=== PATIENT | female | born 1930 | race Caucasian/White ===

== ENCOUNTER 2018-09-09 17:10 | Inpatient (IN) | payer MEDICARE, MEDICAID ==
--- NOTE | 2018-09-09 17:17 | ED Physician Chart ---
ED Chief Complaint/HPI - Patient Information Date Seen:: 09/09/18 Time Seen:: 17:00 Chief Complaint:: Poor Oral Intake History of Present Illness:: onset x 3 days of poor oral intake and failure to thrive; no report of trauma, LOC, ALOC, AMS, H/As, S/T, neck pain, cough, C/P, SOB, Abd. Pain, A/N/V/D/C, fever,chills, or urinary s/s Historian:: Patient, EMS Review:: Nurse's Note Reviewed, Old Chart Reviewed, EMS run form Reviewed ED Review of Systems - Review of Systems General/Constitutional: Fever, No chills, No weight loss, Weakness, No diaphoresis, No edema, No loss of appetite Skin: No skin lesions, No rash, No bruising Head: No headache, No light-headedness Eyes: No loss of vision, No pain, No diplopia ENT: No earache, No nasal drainage, No sore throat, No tinnitus Neck: No neck pain, No swelling, No thyromegaly, No stiffness, No mass noted Cardio Vascular: No chest pain, No palpitations, No PND, No orthopnea, No edema Pulmonary: No SOB, No cough, No sputum, No wheezing GI: No nausea, No vomiting, No diarrhea, No pain, No melena, No hematochezia, No constipation, No hematemesis G/U: No dysuria, No frequency, No hematuria, No nacturia Computer Forensic Specialist: No vaginal discharge, No abnormal vaginal bleed, No contraction Musculoskeletal: No bone or joint pain, No back pain, No muscle pain Endocrine: No polyuria, No polydipsia Psychiatric: Prior psych history, Depression, Anxiety, No suicidal ideation, No homicidal ideation, No auditory hallucination, No visual hallucination Hematopoietic: No bruising, No lymphadenopathy Allergic/Immuno: No urticaria, No angioedema Neurological: No syncope, No focal symptoms, Weakness, No paresthesia, No headache, No seizure, No dizziness, Confusion, No vertigo ED Past Medical History - Past Medical History Obtainable: Yes Past Medical History: HTN, CAD, PUD/GERD, Arthritis, Dementia Family History: Diabetes Melitus, HTN Social History: Non Smoker, No Alcohol, No Drug Use, , Care Facility Surgical History: other (Abdominal/Esophageal Surgery) Psychiatricy History: Dementia Medication: Reviewed Family Medical History - Family Member Mother History Unknown: Yes ED Physical Exam - Physical Examination General/Constitutional: Awake, Well-developed, well-nourished, Alert, No distress, GCS 15, Non-toxic appearing, Ambulatory Head: Atraumatic Eyes: Lids, conjuctiva normal, PERRL, EOMI Skin: Nl inspection, No rash, No skin lesions, No ecchymosis, Well hydrated, No lymphadenopathy ENMT: External ears, nose nl, TM canals nl, Nasal exam nl, Lips, teeth, gums nl , Oropharynx nl, Tonsils nl Neck: Nontender, Full ROM w/o pain, No JVD, No nuchal rigidity, No bruit, No mass, No stridor Respiratory: Nl effort/Exclusion, Clear to Auscultation, No Wheeze/Rhonchi/Rales Cardio Vascular: RRR, No murmur, gallop, rubs, NL S1 S2, Carotid/Femoral/Distal pulses equal bilaterally GI: No tenderness/rebounding/guarding, No organomegaly, No hernia, Normal BS's, Nondistended, No mass/bruits, No McBurney tenderness : No CVA tenderness Extremities: No tenderness or effusion, Full ROM, normal strength in all extremities, No edema, Normal digits & nails Neuro/Psych: Alert/oriented, DTR's symmetric, Normal sensory exam, Normal motor strength, Judgement/insight normal, Mood normal, Normal gait, No focal deficits Misc: Normal back, No paraspinal tenderness ED Labs/Radiology/EKG Results - Lab Results Comments:: Reviewed - Radiology Results Comments:: NAD - EKG Interpretations EKG Time:: 17:30 Rate & Rhythm: 78; NSR Comments:: non-specific st-t changes ED Septic Shock - . Is Septic Shock (SBP<90, OR Lactate>4 mmol\L) present?: No ED Reassessment (Disposition) - Reassessment Reassessment Condition:: Improved - Diagnosis Diagnosis:: poor Oral Intake; Failure to Thrive; Dehydration
[2018-09-09 18:10] LABS: % BASOPHILS 0.4 % (0.0-2.0); % LYMPHOCYTES 24.1 % (20.0-50.0); % MONOCYTES 6.6 % (2.0-10.0); % NEUTROPHILS 67.9 % (40.0-80.0); EOSINOPHILE ABSOLUTE 0.1 Th/cmm (0.1-0.4); HEMOGLOBIN 14.3 gm/dL (12-16); MEAN CELL VOLUME 86.5 fl (81-100); MEAN CORPUSCULAR HEMOGLOBIN 28.1 pg (27.0-31.0); MEAN CORPUSCULAR HGB CONC 32.5 pg (28.0-36.0); MEAN PLATELET VOLUME 7.9 fl; MONOCYTE ABSOLUTE 0.6 Th/cmm (0.3-1.0); NEUTROPHILE ABSOLUTE 5.7 Th/cmm (1.8-8.0); PLATELET COUNT 214 Th/cmm (150-400); RED BLOOD COUNT 5.09 Mil/cmm (3.80-5.20); RED CELL DISTRIBUTION WIDTH 13.8 % (11.5-20.0); WHITE BLOOD COUNT 8.4 Th/cmm (4.8-10.8)
[2018-09-09 18:30] LABS: ALBUMIN 3.8 gm/dL (3.7-5.3); ALKALINE PHOSPHATASE 71 U/L (34-104); BILIRUBIN,TOTAL 0.4 mg/dL (0.3-1.0); BUN - UREA NITROGEN 29 mg/dL (7-25); CALCIUM SERUM 10.2 mg/dL (8.6-10.3); CARBON DIOXIDE 25.4 mEq/L (21.0-31.0); CHLORIDE 103 mEq/L (98-107); CREATININE - SERUM 0.8 mg/dL (0.6-1.2); CREATININE KINASE 42 U/L (30-223); GLUCOSE 94 mg/dL (70-105); POTASSIUM SERUM 4.4 mEq/L (3.5-5.1); SGOT 20 U/L (13-39); SGPT/ALT 8 U/L (7-52); SODIUM SERUM 137 mEq/L (136-145); TOTAL PROTEIN,SERUM 7.6 gm/dL (6.0-8.3)
[2018-09-09 18:31] LABS: TROP I 0.03 ng/mL (0.01-0.05)
[2018-09-09 18:39] LABS: INR 0.97 (0.5-1.4); PROTHROMBIN TIME (TEST) 10.1 SECONDS (9.5-11.5)
[2018-09-09] MEDS ORDERED: Sodium Chloride 0.9% 1,000 ML IV ONE (20:45)
[2018-09-09 21:42] VITALS: BP 133/60
[2018-09-09] MEDS ORDERED: Magnesium Hydroxide (MOM) 30 mL UDC PO PRN (21:45)
[2018-09-09] MEDS ORDERED: Acetaminophen 500 MG TAB PO PRN (21:45)
[2018-09-09] MEDS ORDERED: Ipratropium Neb 0.5 mg/2.5 mL UD HHN PRN (21:46)
[2018-09-09] MEDS ORDERED: Albuterol Nebulizer 2.5mg/3mL HHN PRN (21:46)
[2018-09-09] MEDS ORDERED: Maalox 30 mL Cup PO PRN (21:46)
[2018-09-09] MEDS ORDERED: guaiFENesin 200 MG/10 ML UDC PO PRN (21:46)
[2018-09-09] MEDS: D5-0.45NS 1,000 ML IV SCH (22:40)
[2018-09-10 05:43] LABS: URINE SOURCE CATH
[2018-09-10 05:46] LABS: URINE BILIRUBIN NEGATIVE (NEGATIVE); URINE BLOOD TRACE (NEGATIVE); URINE GLUCOSE (UA) NEGATIVE (NEGATIVE); URINE KETONE NEGATIVE (NEGATIVE); URINE LEUKOCYTE ESTERASE LARGE (NEGATIVE); URINE MICROSCOPIC INDICATED? YES; URINE NITRATE POSITIVE (NEGATIVE); URINE PROTEIN NEGATIVE (NEGATIVE); URINE UROBILINOGEN 0.2 E.U./dL (0.2 - 1.0)
[2018-09-10 05:54] LABS: URINE CLARITY HAZY (CLEAR); URINE COLOR YELLOW
[2018-09-10 05:55] LABS: URINE RBC 0-2 /hpf (0-5)
[2018-09-10 05:56] LABS: URINE BACTERIA MODERATE /hpf (NONE SEEN); URINE EPITHELIAL CELLS MODERATE /lpf (FEW); URINE WBC 50-100 /hpf (0-5)
--- NOTE | 2018-09-10 08:38 | Diagnostic Imaging Report ---
CHEST X-RAY: AP view INDICATION: pain COMPARISON: None FINDINGS: Chronic lung changes are seen with increased left basal lung markings. There may be trace left pleural fluid. Heart size is difficult to assess due to body habitus and appears borderline prominent. Atherosclerosis is noted. Degenerative changes of the spine are noted. IMPRESSION: Limited exam due to body habitus. Chronic lung changes are seen with increased left basal lung markings which may be chronic. Faint infiltrate is less likely Trace left pleural fluid suspected Atherosclerotic vascular disease.
[2018-09-10] MEDS ORDERED: CHOLECALCIFEROL 2000 UNIT PO SCH (09:00)
[2018-09-10] MEDS: Multivitamin w/ Minerals Tab PO SCH (09:18)
--- NOTE | 2018-09-10 11:32 | Internal Medicine Prog Note ---
Internal Medicine Subjective - Subjective Service Date: 09/10/18 ([id number] [facility] ) Internal Medicine Objective - Results Result Diagrams: 09/09/18 17:45 09/09/18 17:45 Recent Labs: Laboratory Last Values WBC 8.4 Th/cmm (4.8-10.8) 09/09/18 17:45 RBC 5.09 Mil/cmm (3.80-5.20) 09/09/18 17:45 Hgb 14.3 gm/dL (12-16) 09/09/18 17:45 Hct 44.0 % (41.0-60) 09/09/18 17:45 MCV 86.5 fl (81-100) 09/09/18 17:45 MCH 28.1 pg (27.0-31.0) 09/09/18 17:45 MCHC Differential 32.5 pg (28.0-36.0) 09/09/18 17:45 RDW 13.8 % (11.5-20.0) 09/09/18 17:45 Plt Count 214 Th/cmm (150-400) 09/09/18 17:45 MPV 7.9 fl 09/09/18 17:45 Neutrophils % 67.9 % (40.0-80.0) 09/09/18 17:45 Lymphocytes % 24.1 % (20.0-50.0) 09/09/18 17:45 Monocytes % 6.6 % (2.0-10.0) 09/09/18 17:45 Eosinophils % 1.0 % (0.0-5.0) 09/09/18 17:45 Basophils % 0.4 % (0.0-2.0) 09/09/18 17:45 PT 10.1 SECONDS (9.5-11.5) 09/09/18 17:45 INR 0.97 (0.5-1.4) 09/09/18 17:45 PTT (Actin FS) 25.6 SECONDS (26.0-38.0) L 09/09/18 17:45 Sodium 137 mEq/L (136-145) 09/09/18 17:45 Potassium 4.4 mEq/L (3.5-5.1) 09/09/18 17:45 Chloride 103 mEq/L (98-107) 09/09/18 17:45 Carbon Dioxide 25.4 mEq/L (21.0-31.0) 09/09/18 17:45 Anion Gap 13.0 (7.0-16.0) 09/09/18 17:45 BUN 29 mg/dL (7-25) H 09/09/18 17:45 Creatinine 0.8 mg/dL (0.6-1.2) 09/09/18 17:45 Est GFR ( Amer) TNP 09/09/18 17:45 Est GFR (Non-Af Amer) TNP 09/09/18 17:45 BUN/Creatinine Ratio 36.3 09/09/18 17:45 Glucose 94 mg/dL (70-105) 09/09/18 17:45 Whole Bld Lactic Acid 0.98 mmol/L (0.60-1.99) 09/09/18 17:45 Calcium 10.2 mg/dL (8.6-10.3) 09/09/18 17:45 Total Bilirubin 0.4 mg/dL (0.3-1.0) 09/09/18 17:45 AST 20 U/L (13-39) 09/09/18 17:45 ALT 8 U/L (7-52) 09/09/18 17:45 Alkaline Phosphatase 71 U/L (34-104) 09/09/18 17:45 Creatine Kinase 42 U/L (30-223) 09/09/18 17:45 Troponin I 0.03 ng/mL (0.01-0.05) 09/09/18 17:45 Total Protein 7.6 gm/dL (6.0-8.3) 09/09/18 17:45 Albumin 3.8 gm/dL (3.7-5.3) 09/09/18 17:45 Globulin 3.8 gm/dL 09/09/18 17:45 Albumin/Globulin Ratio 1.0 (1.0-1.8) 09/09/18 17:45 Urine Source CATH 09/10/18 05:30 Urine Color YELLOW 09/10/18 05:30 Urine Clarity HAZY (CLEAR) 09/10/18 05:30 Urine pH 6.0 (4.6 - 8.0) 09/10/18 05:30 Ur Specific [place] <= 1.005 (1.005-1.030) 09/10/18 05:30 Urine Protein NEGATIVE mg/dL (NEGATIVE) 09/10/18 05:30 Urine Glucose (UA) NEGATIVE mg/dL (NEGATIVE) 09/10/18 05:30 Urine Ketones NEGATIVE mg/dL (NEGATIVE) 09/10/18 05:30 Urine Blood TRACE (NEGATIVE) 09/10/18 05:30 Urine Nitrate POSITIVE (NEGATIVE) H 09/10/18 05:30 Urine Bilirubin NEGATIVE (NEGATIVE) 09/10/18 05:30 Urine Urobilinogen 0.2 E.U./dL (0.2 - 1.0) 09/10/18 05:30 Ur Leukocyte Esterase LARGE (NEGATIVE) H 09/10/18 05:30 Urine RBC 0-2 /hpf (0-5) 09/10/18 05:30 Urine WBC 50-100 /hpf (0-5) H 09/10/18 05:30 Ur Epithelial Cells MODERATE /lpf (FEW) 09/10/18 05:30 Urine Bacteria MODERATE /hpf (NONE SEEN) H 09/10/18 05:30 - Physical Exam Vitals and I&O: Vital Signs Temp 98.2 F 09/10/18 08:00 Pulse 62 09/10/18 08:00 Resp 16 09/10/18 08:00 BP 124/47 09/10/18 08:00 Pulse Ox 95 09/10/18 08:00 Intake & Output 09/09/18 09/10/18 09/10/18 18:59 06:59 18:59 Intake Total 1000 Balance 1000 Weight (lbs) 83 lb 86 lb 7 oz Intake: Intake, IV Amount 1000 Sodium Chloride 0.9% 1, 1000 000 ml @ 100 mls/hr IV . Q10H ONE Rx#:[id number] Other: # Voids 2 # Bowel Movements 0 Weight Source Patient stated Bedscale Active Medications: Current Medications Acetaminophen (Tylenol Extra Strength) 1,000 mg PO Q4HR PRN PRN Reason: Pain (Moderate) LEVEL 4-6 Stop: 11/08/18 21:44 Al Hydrox/Mg Hydrox/Simethicone (Maalox) 30 ml PO Q6H PRN PRN Reason: Dyspepsia Stop: 11/08/18 21:45 Albuterol Sulfate (Albuterol 2.5mg/3ml Neb Ud) 2.5 mg HHN Q2HRT PRN PRN Reason: Shortness of Breath or Wheeze Stop: 11/08/18 21:45 Aspirin (Ecotrin) 81 mg PO DAILY [facility] Stop: 11/09/18 08:59 Last Admin: 09/10/18 09:18 Dose: 81 mg Bisacodyl (Dulcolax 10 Mg Supp) 10 mg RC DAILY PRN PRN Reason: Constipation Stop: 11/08/18 21:44 Cholecalciferol (Vitamin D3) 2,000 iu PO DAILY [facility] Stop: 11/09/18 08:59 Last Admin: 09/10/18 09:18 Dose: 2,000 iu Famotidine (Pepcid) 20 mg PO DAILY [facility] Stop: 11/09/18 08:59 Last Admin: 09/10/18 09:18 Dose: 20 mg Guaifenesin (Robitussin) 200 mg PO Q4HR PRN PRN Reason: Cough or Congestion Stop: 11/08/18 21:45 Dextrose/Sodium Chloride (D5-0.45ns) 1,000 mls @ 80 mls/hr IV .[id number] [facility] Stop: 11/08/18 21:59 Last Admin: 09/09/18 22:40 Dose: 80 mls/hr Ipratropium [place] (Atrovent Neb 0.5mg/2.5ml) 0.5 mg HHN Q2HRT PRN PRN Reason: Shortness of Breath or Wheeze Stop: 11/08/18 21:45 Magnesium Hydroxide (Milk Of Magnesia) 30 ml PO HS PRN PRN Reason: Constipation Stop: 11/08/18 21:44 Megestrol Acetate (Megace) 400 mg PO BID [facility]; Protocol Stop: 11/09/18 08:59 Last Admin: 09/10/18 09:18 Dose: 400 mg Memantine (Namenda) 10 mg PO BID [facility] Stop: 11/09/18 08:59 Last Admin: 09/10/18 09:18 Dose: 10 mg Ondansetron HCl (Zofran) 4 mg IV Q8H PRN PRN Reason: Nausea / Vomiting Stop: 11/08/18 21:45
--- NOTE | 2018-09-10 12:05 | History & Physical ---
ADMIT DATE: 09/09/2018 CHIEF COMPLAINT: Poor oral intake. HISTORY OF PRESENT ILLNESS: This is an 87-year-old elderly female who is a penitentiary resident, admitted here to the med/surg unit due to a 3-day history of poor oral intake. No reports of any fevers. For further management, the patient is now admitted here to the med/surg unit. PAST MEDICAL HISTORY: Hypertension, CAD, GERD, arthritis, and dementia. FAMILY HISTORY: Noncontributory. SOCIAL HISTORY: The patient is a penitentiary resident, requiring 24-hour nursing care. PAST SURGICAL HISTORY: Unknown. MEDICATIONS: Please see medication list. REVIEW OF SYSTEMS: Unable to obtain at this time. PHYSICAL EXAMINATION: GENERAL: The patient is well developed, well nourished, no apparent distress. VITAL SIGNS: Temperature 98.2, heart rate 62, blood pressure 124/47, respirations 16, O2 of 95%. HEENT: Head; normocephalic, atraumatic. NECK: Supple. No mass. LUNGS: Clear bilaterally. ABDOMEN: Soft, nontender. LABORATORY DATA: WBC 8.4, H and H of 14.3/44.0, platelet of 214. Sodium 137, potassium 4.4, chloride 103, BUN 29, creatinine 0.8. The patient had a urinalysis done, positive for UTI. DIAGNOSTICS: The patient had a chest x-ray done, impression is limited exam due to body habitus, chronic lung changes are seen with increased left basal lung markings which may be chronic. Faint infiltrate less likely trace left pleural fluid suspected atherosclerotic vascular disease. ASSESSMENT: Failure to thrive, acute dehydration, hypertension, dementia, arthritis, Gastroesophageal reflux disease. PLAN: The patient to be admitted to the med/surg unit. Keep patient on IV fluids for hydration. We will get a calorie count. Also get Psychiatry consultation as well. Keep patient on empiric IV antibiotics and send urine for cultures. We will continue to monitor this patient. JOB# [id number]
[2018-09-10] MEDS: Levofloxacin 500mg/100mL 500 MG/100 ML BAG IV SCH (12:39)
[2018-09-10] MEDS: D5-0.45NS 1,000 ML IV SCH (12:44)
--- NOTE | 2018-09-10 19:28 | Consultation ---
DATE OF CONSULTATION: 09/10/2018 PSYCHIATRIC CONSULTATION PHYSICIAN REQUESTING CONSULTATION: Tono Wagner DO IDENTIFYING DATA: The patient is an 87-year-old woman who has been admitted for failure to thrive. Psychiatric consultation is called to address the issue of the depression. Staff was spoken to. The patient is interviewed through a Fijian speaking manufacturing analyst. During the interview, the patient is stating that she does not need any help and is stating that she is okay and she is not willing to eat anything because of the mood that she is in. The patient's sleep is noted to be extremely poor. Appetite is also noted to be very poor. The patient is very reluctant to have any food. PAST PSYCHIATRIC HISTORY: Details are not known. SOCIAL HISTORY: The patient is a resident of the correction facility. MENTAL EXAMINATION: The patient is an 87-year-old woman, thin built, superficially cooperative. Eye contact is poor. Mood is noted to be irritable. Affect is constricted. The patient is stating that she is in a mood that is not allowing her to eat. The patient has short-term as well as long-term memory deficits. Insight and judgment are noted to be very much impaired. The patient is engaging in the conversation, but is very reluctant to have any food to be given. The patient has no insight into her illness. DIAGNOSTIC IMPRESSION: AXIS IA: Dementia and behavioral change, secondary trait. AXIS IB.: Depressive disorder, not otherwise specified. PLAN: To closely monitor the patient and then start her with an antidepressant medication and follow her up with supportive therapy. Thank you, Dr. Wagner for allowing me to participate in the care of the patient. [facility]# [id number]
[2018-09-11] MEDS: D5-0.45NS 1,000 ML IV SCH ×2 (04:55→13:47)
[2018-09-11 05:25] LABS: % BASOPHILS 0.4 % (0.0-2.0); % EOSINOPHILS 3.5 % (0.0-5.0); % LYMPHOCYTES 27.3 % (20.0-50.0); % MONOCYTES 8.1 % (2.0-10.0); % NEUTROPHILS 60.7 % (40.0-80.0); EOSINOPHILE ABSOLUTE 0.3 Th/cmm (0.1-0.4); HEMATOCRIT 39.1 % (41.0-60); HEMOGLOBIN 13.1 gm/dL (12-16); LYMPHOCYTE ABSOLUTE 2.2 Th/cmm (1.5-3.0); MEAN CELL VOLUME 85.7 fl (81-100); MEAN CORPUSCULAR HEMOGLOBIN 28.7 pg (27.0-31.0); MEAN CORPUSCULAR HGB CONC 33.5 pg (28.0-36.0); MEAN PLATELET VOLUME 8.1 fl; MONOCYTE ABSOLUTE 0.6 Th/cmm (0.3-1.0); NEUTROPHILE ABSOLUTE 4.9 Th/cmm (1.8-8.0); PLATELET COUNT 181 Th/cmm (150-400); RED BLOOD COUNT 4.56 Mil/cmm (3.80-5.20); RED CELL DISTRIBUTION WIDTH 13.4 % (11.5-20.0)
[2018-09-11 05:43] LABS: ANION GAP 10.9 (7.0-16.0); BUN - UREA NITROGEN 14 mg/dL (7-25); CALCIUM SERUM 9.4 mg/dL (8.6-10.3); CARBON DIOXIDE 21.8 mEq/L (21.0-31.0); CHLORIDE 108 mEq/L (98-107); CREATININE - SERUM 0.8 mg/dL (0.6-1.2); GLUCOSE 100 mg/dL (70-105); POTASSIUM SERUM 3.7 mEq/L (3.5-5.1); SODIUM SERUM 137 mEq/L (136-145)
[2018-09-11] MEDS: Multivitamin w/ Minerals Tab PO SCH (09:02)
[2018-09-11] MEDS ORDERED: Probiotic Screen MC PRN (10:12)
[2018-09-11] MEDS: Levofloxacin 500mg/100mL 500 MG/100 ML BAG IV SCH (11:10)
--- NOTE | 2018-09-11 13:15 | Internal Medicine Prog Note ---
Internal Medicine Subjective - Subjective Service Date: 09/11/18 Patient seen and examined:: with staff Patient is:: awake, verbal, confused Per staff patient has:: poor appetite, tolerating meds Internal Medicine Objective - Results Result Diagrams: 09/11/18 04:55 09/11/18 04:55 Recent Labs: Laboratory Last Values WBC 8.0 Th/cmm (4.8-10.8) 09/11/18 04:55 RBC 4.56 Mil/cmm (3.80-5.20) 09/11/18 04:55 Hgb 13.1 gm/dL (12-16) 09/11/18 04:55 Hct 39.1 % (41.0-60) L 09/11/18 04:55 MCV 85.7 fl (81-100) 09/11/18 04:55 MCH 28.7 pg (27.0-31.0) 09/11/18 04:55 MCHC Differential 33.5 pg (28.0-36.0) 09/11/18 04:55 RDW 13.4 % (11.5-20.0) 09/11/18 04:55 Plt Count 181 Th/cmm (150-400) 09/11/18 04:55 MPV 8.1 fl 09/11/18 04:55 Neutrophils % 60.7 % (40.0-80.0) 09/11/18 04:55 Lymphocytes % 27.3 % (20.0-50.0) 09/11/18 04:55 Monocytes % 8.1 % (2.0-10.0) 09/11/18 04:55 Eosinophils % 3.5 % (0.0-5.0) 09/11/18 04:55 Basophils % 0.4 % (0.0-2.0) 09/11/18 04:55 PT 10.1 SECONDS (9.5-11.5) 09/09/18 17:45 INR 0.97 (0.5-1.4) 09/09/18 17:45 PTT (Actin FS) 25.6 SECONDS (26.0-38.0) L 09/09/18 17:45 Sodium 137 mEq/L (136-145) 09/11/18 04:55 Potassium 3.7 mEq/L (3.5-5.1) 09/11/18 04:55 Chloride 108 mEq/L (98-107) H 09/11/18 04:55 Carbon Dioxide 21.8 mEq/L (21.0-31.0) 09/11/18 04:55 Anion Gap 10.9 (7.0-16.0) 09/11/18 04:55 BUN 14 mg/dL (7-25) 09/11/18 04:55 Creatinine 0.8 mg/dL (0.6-1.2) 09/11/18 04:55 Est GFR ( Amer) TNP 09/11/18 04:55 Est GFR (Non-Af Amer) TNP 09/11/18 04:55 BUN/Creatinine Ratio 17.5 09/11/18 04:55 Glucose 100 mg/dL (70-105) 09/11/18 04:55 Whole Bld Lactic Acid 0.98 mmol/L (0.60-1.99) 09/09/18 17:45 Calcium 9.4 mg/dL (8.6-10.3) 09/11/18 04:55 Total Bilirubin 0.4 mg/dL (0.3-1.0) 09/09/18 17:45 AST 20 U/L (13-39) 09/09/18 17:45 ALT 8 U/L (7-52) 09/09/18 17:45 Alkaline Phosphatase 71 U/L (34-104) 09/09/18 17:45 Creatine Kinase 42 U/L (30-223) 09/09/18 17:45 Troponin I 0.03 ng/mL (0.01-0.05) 09/09/18 17:45 Total Protein 7.6 gm/dL (6.0-8.3) 09/09/18 17:45 Albumin 3.8 gm/dL (3.7-5.3) 09/09/18 17:45 Globulin 3.8 gm/dL 09/09/18 17:45 Albumin/Globulin Ratio 1.0 (1.0-1.8) 09/09/18 17:45 Urine Source CATH 09/10/18 05:30 Urine Color YELLOW 09/10/18 05:30 Urine Clarity HAZY (CLEAR) 09/10/18 05:30 Urine pH 6.0 (4.6 - 8.0) 09/10/18 05:30 Ur Specific [place] <= 1.005 (1.005-1.030) 09/10/18 05:30 Urine Protein NEGATIVE mg/dL (NEGATIVE) 09/10/18 05:30 Urine Glucose (UA) NEGATIVE mg/dL (NEGATIVE) 09/10/18 05:30 Urine Ketones NEGATIVE mg/dL (NEGATIVE) 09/10/18 05:30 Urine Blood TRACE (NEGATIVE) 09/10/18 05:30 Urine Nitrate POSITIVE (NEGATIVE) H 09/10/18 05:30 Urine Bilirubin NEGATIVE (NEGATIVE) 09/10/18 05:30 Urine Urobilinogen 0.2 E.U./dL (0.2 - 1.0) 09/10/18 05:30 Ur Leukocyte Esterase LARGE (NEGATIVE) H 09/10/18 05:30 Urine RBC 0-2 /hpf (0-5) 09/10/18 05:30 Urine WBC 50-100 /hpf (0-5) H 09/10/18 05:30 Ur Epithelial Cells MODERATE /lpf (FEW) 09/10/18 05:30 Urine Bacteria MODERATE /hpf (NONE SEEN) H 09/10/18 05:30 - Physical Exam Vitals and I&O: Vital Signs Temp 97.9 F 09/11/18 11:31 Pulse 69 09/11/18 11:31 Resp 18 09/11/18 11:31 BP 150/68 09/11/18 11:31 Pulse Ox 98 09/11/18 11:31 Intake & Output 09/10/18 09/11/18 09/11/18 18:59 06:59 18:59 Intake Total 1400 1104 Balance 1400 1104 Weight (lbs) 86 lb 86 lb 3.2 oz Intake: Intake, IV Amount 1100 1104 D5-0.45NS 1,000 ml @ 80 1000 1104 mls/hr IV .[id number] [place] Rx #:[id number] Levofloxacin 500mg/100mL 100 500 mg In 100 ml @ 100 mls/hr IV Q24HR [place] Rx#: [id number] Oral 300 Other: # Voids 2 2 # Bowel Movements 0 0 Weight Source Bedscale Bedscale Active Medications: Current Medications Acetaminophen (Tylenol Extra Strength) 1,000 mg PO Q4HR PRN PRN Reason: Pain (Moderate) LEVEL 4-6 Stop: 11/08/18 21:44 Al Hydrox/Mg Hydrox/Simethicone (Maalox) 30 ml PO Q6H PRN PRN Reason: Dyspepsia Stop: 11/08/18 21:45 Albuterol Sulfate (Albuterol 2.5mg/3ml Neb Ud) 2.5 mg HHN Q2HRT PRN PRN Reason: Shortness of Breath or Wheeze Stop: 11/08/18 21:45 Aspirin (Ecotrin) 81 mg PO DAILY [facility] Stop: 11/09/18 08:59 Last Admin: 09/11/18 09:01 Dose: 81 mg Bisacodyl (Dulcolax 10 Mg Supp) 10 mg RC DAILY PRN PRN Reason: Constipation Stop: 11/08/18 21:44 Cholecalciferol (Vitamin D3) 2,000 iu PO DAILY [facility] Stop: 11/09/18 08:59 Last Admin: 09/11/18 09:02 Dose: 2,000 iu Famotidine (Pepcid) 20 mg PO DAILY [facility] Stop: 11/09/18 08:59 Last Admin: 09/11/18 09:02 Dose: 20 mg Guaifenesin (Robitussin) 200 mg PO Q4HR PRN PRN Reason: Cough or Congestion Stop: 11/08/18 21:45 Dextrose/Sodium Chloride (D5-0.45ns) 1,000 mls @ 80 mls/hr IV .[id number] [facility] Stop: 11/08/18 21:59 Last Infusion: 09/11/18 06:13 Dose: 80 mls/hr Levofloxacin (Levaquin Pb) 500 mg in 100 mls @ 100 mls/hr IV Q24HR [facility] Stop: 11/09/18 11:59 Last Admin: 09/11/18 11:10 Dose: 100 mls/hr Ipratropium [place] (Atrovent Neb 0.5mg/2.5ml) 0.5 mg HHN Q2HRT PRN PRN Reason: Shortness of Breath or Wheeze Stop: 11/08/18 21:45 Lactobacillus Rhamnosus (Culturelle 15b) 1 each PO DAILY [facility] Stop: 11/11/18 08:59 Magnesium Hydroxide (Milk Of Magnesia) 30 ml PO HS PRN PRN Reason: Constipation Stop: 11/08/18 21:44 Megestrol Acetate (Megace) 400 mg PO BID [place]; Protocol Stop: 11/09/18 08:59 Last Admin: 09/11/18 09:01 Dose: 400 mg Memantine (Namenda) 10 mg PO BID [place] Stop: 11/09/18 08:59 Last Admin: 09/11/18 09:02 Dose: 10 mg Miscellaneous (Probiotic Screen) 1 ea MC PRN PRN PRN Reason: PROTOCOL Stop: 11/10/18 10:11 Ondansetron HCl (Zofran) 4 mg IV Q8H PRN PRN Reason: Nausea / Vomiting Stop: 11/08/18 21:45 General: weak, alert, demented HEENT: NC/AT, PERRLA Neck: Supple Lungs: CTAB Cardiovascular: RRR, Normal S1, Normal S2, without murmur Abdomen: soft, non-tender, non-distended Extremities: excoriation Neurological: no change, alert Internal Medicine Assmt/Plan - Assessment Assessment: ftt acute uti htn dementia gerd arthritis - Plan Plan: monitor calorie count, nurses to help feed patient. ivf for hydration monitor bun/crea closely await for urine culture follow up labs in am continue current plan of care Nutritional Asmnt/Malnutr-PDOC - Dietary Evaluation Malnutrition Findings (Please click <Entered> for more info): Nutritional Asmnt/Malnutrition Start: 09/10/18 12: 27 Text: Status: Complete Freq: Protocol: Document 09/10/18 12:27 RANDEE (Rec: 09/10/18 12:29 RANDEE [email or web address]) Nutritional Asmnt/Malnutrition Patient General Information Nutritional Screening High Risk Consult Diagnosis FTT, dehydration Pertinent Medical Hx/Surgical Hx HTN, CAD, PUD/GERD, arthritis, dementia Subjective Information Received diet consult for poor oral intake. Pt had poor intake x 3 days before admission per MD note. Pt's mongolian speaking only; language barrier, but azure architect present. Pt states her food is good, consumed all of her breakfast today and no food preferences. Visually verified muscle wasting of pt' s arms. Per nurse note, pt likes to spit out food, pt may have swallow eval. Current Diet Order/ Nutrition Support mech soft ground, GARRETT Pertinent Medications maalox, dulcolax, Vit D3, D5-0 .45ns, pepcid, MOM, megace, zofran Pertinent Labs 09/09: BUN 29 Nutritional Hx/Data Height 5 ft Height (Calculated Centimeters) 152.4 Current Weight (lbs) 86 lb 5 oz Weight (Calculated Kilograms) 39.2 Weight (Calculated Grams) 08475.7 [place] Body Weight 100 lb Body Mass Index (BMI) 16.8 Weight Status Underweight GI Symptoms GI Symptoms None Last BM none noted Difficult in: None Food Allergies No Skin Integrity/Comment: kyle white 15 Estimated Nutritional Goals BEE in Kcals: Using Current wt Calories/Kcals/Kg 30-35 Kcals Calculated 5855-5801 Protein: Using Current wt Protein g/k.2-1.4 Protein Calculated 47-55 g Fluid: ml 3611-8513 (1 ml/kcal) Nutritional Problem 2. Problem Problem Altered nutrition related lab value Etiology possible fluid imbalance Signs/Symptoms: BUN 29 1. Problem Problem Underweight Etiology hx of poor oral intake Signs/Symptoms: BMI 16.9 Malnutrition Alert Muscle Mass (Severe) Mod to Severe Depletion Is there a minimum of two criteria No selected? Query Text:Check all the applicable criteria. A minimum of two criteria are recommended for diagnosis of either severe or non-severe malnutrition. Malnutrition Related to Morbid Obesity Malnutrition related to morbid obesity No Intervention/Recommendation Comments 1. Continue with [facility] soft ground, GARRETT diet as ordered, texture per ST if pt has swallow eval. Encourage pt to eat and nurse to assist w/ meals as needed 2. Monitor PO intake, wt, labs and skin integrity 3. F/U as high risk in 2-3 days, 09/12- Expected Outcomes/Goals Expected Outcomes/Goals 1. PO intake at least 75% of all meals 2. Wt gain towards IBW or stability, skin to remain intact, labs to approach normal limits Reveiwed by Shaniqua Lopez RD
[2018-09-12 08:57] LABS: % BASOPHILS 0.4 % (0.0-2.0); % EOSINOPHILS 3.1 % (0.0-5.0); % LYMPHOCYTES 35.7 % (20.0-50.0); % MONOCYTES 5.9 % (2.0-10.0); % NEUTROPHILS 54.9 % (40.0-80.0); EOSINOPHILE ABSOLUTE 0.2 Th/cmm (0.1-0.4); HEMATOCRIT 44.2 % (41.0-60); HEMOGLOBIN 14.4 gm/dL (12-16); LYMPHOCYTE ABSOLUTE 2.9 Th/cmm (1.5-3.0); MEAN CELL VOLUME 86.9 fl (81-100); MEAN CORPUSCULAR HEMOGLOBIN 28.3 pg (27.0-31.0); MEAN CORPUSCULAR HGB CONC 32.5 pg (28.0-36.0); MONOCYTE ABSOLUTE 0.5 Th/cmm (0.3-1.0); NEUTROPHILE ABSOLUTE 4.4 Th/cmm (1.8-8.0); PLATELET COUNT 217 Th/cmm (150-400); RED BLOOD COUNT 5.08 Mil/cmm (3.80-5.20); RED CELL DISTRIBUTION WIDTH 13.5 % (11.5-20.0)
[2018-09-12] MEDS ORDERED: Lactobacillus Rhamnosus GG 15 Billion CFU CAP.SPRINK PO SCH (09:00)
[2018-09-12 09:13] LABS: BUN - UREA NITROGEN 13 mg/dL (7-25); CALCIUM SERUM 9.8 mg/dL (8.6-10.3); CARBON DIOXIDE 18.8 mEq/L (21.0-31.0); CHLORIDE 111 mEq/L (98-107); CREATININE - SERUM 0.8 mg/dL (0.6-1.2); GLUCOSE 151 mg/dL (70-105); POTASSIUM SERUM 3.8 mEq/L (3.5-5.1); SODIUM SERUM 139 mEq/L (136-145)
[2018-09-12] MEDS: Multivitamin w/ Minerals Tab PO SCH (09:16)
[2018-09-12] MEDS: D5-0.45NS 1,000 ML IV SCH (09:45)
--- NOTE | 2018-09-12 11:14 | Progress Notes ---
DATE: 09/11/2018 PSYCHIATRIC PROGRESS NOTE SUBJECTIVE: Staff was spoken to. The patient is interviewed. Mood is noted to be irritable. Affect is constricted. Insight and judgment are noted to be impaired. Impulse control is noted to be poor. Coping skills are also noted to be very poor. The patient is stating that she has decided not to eat and she is not going to be changing her mind. The patient has no insight into her illness. ASSESSMENT: The patient is severely depressed. PLAN: To continue the patient with start the patient on 7.5 mg of the Remeron and follow the patient with the supportive therapy. [facility]# [id number]
[2018-09-12] MEDS: Levofloxacin 500mg/100mL 500 MG/100 ML BAG IV SCH (12:38)
--- NOTE | 2018-09-12 15:59 | Discharge Summary ---
DATE OF DISCHARGE: 09/12/2018 CHIEF COMPLAINT: Poor oral intake. FINAL DIAGNOSES: Failure to thrive, urinary tract infection, acute hypertension, diarrhea, dehydration, arthritis and gastroesophageal reflux disorder. HISTORY: This is an 87-year-old elderly female from nursing facility with multiple medical problems, apparently with history of not taking medication and diet. The patient is a poor historian and the patient admitted for further management. PHYSICAL EXAMINATION: VITAL SIGNS: Blood pressure 116/63, respirations 18, pulse 60, and temperature 98.4. GENERAL: Elderly female, appears her stated age. NECK: Supple. No mass. LUNGS: Equal breath sounds, few rhonchi. HEART: Regular rate and rhythm with systolic ejection murmur. ABDOMEN: Soft, globular. EXTREMITIES: Positive excoriation atrophy. NEUROLOGIC: Limited. HOSPITAL COURSE: The patient was admitted to medical floor, continued IV antibiotic, IV hydration. The patient's culture came back positive for Staph. The patient was initially on Levaquin and later switched to Bactrim. The patient's blood cultures did not show any growth. The patient was referred to Dr. White for psych. Her psychotropic medications were adjusted. The patient cleared for discharge. CONDITION ON DISCHARGE: Fair. DISCHARGE INSTRUCTIONS: The patient to continue with current medical regimen. The patient will be discharged to intermediate facility. JOB# [id number]
[2018-09-12] MEDS ORDERED: Sulfamethoxazole/TMP 800/160mg Tab PO SCH (17:00)
--- NOTE | 2018-09-12 21:57 | Progress Notes ---
DATE: 09/12/2018 PSYCHIATRIC PROGRESS NOTE SUBJECTIVE: Staff was spoken to. The patient is interviewed. Mood is noted to be depressed. Affect is constricted. The patient is isolative and withdrawn. Insight and judgment at this time are noted to be still impaired. The patient is reluctant to comply with any of the treatments. The patient is stating that she decided not to eat and that is all it is going to be. No side effects to the medications are noted at this time. ASSESSMENT: The patient is still depressed. PLAN: To continue the patient with Remeron and followup. JOB# [id number]
== END 2018-09-12 15:40 | DRG 690 ==
LOC: ER 17:10 → MSI 20:37
PROVIDERS: ADMIT Internal Medicine; ATTEND Internal Medicine
DX: N39.0 Urinary tract infection, site not specified (principal); F03.91 Unspecified dementia, unspecified severity, with behavioral disturbance; E86.0 Dehydration; R62.7 Adult failure to thrive; I10 Essential (primary) hypertension; F03.90 Unspecified dementia, unspecified severity, without behavioral disturbance, psychotic disturbance, mood disturbance, and anxiety; F32.9 Major depressive disorder, single episode, unspecified; R19.7 Diarrhea, unspecified; B95.8 Unspecified staphylococcus as the cause of diseases classified elsewhere; M19.90 Unspecified osteoarthritis, unspecified site; K21.9 Gastro-esophageal reflux disease without esophagitis; I25.10 Atherosclerotic heart disease of native coronary artery without angina pectoris; Z83.3 Family history of diabetes mellitus; Z82.49 Family history of ischemic heart disease and other diseases of the circulatory system
CPT/HCPCS: 36415-UA; 71045-TC; 80048-TC; 80053-TC; 81001-TC; 82550-TC; 83605; 84484-TC; 85025-TC; 85610-TC; 85730-TC; 87086-90; 93005; 94760; J1956; J7030; X3401; Z7610